=== PATIENT | female | born 1965 | race Caucasian/White ===

== ENCOUNTER → 2016-10-04 | Outpatient (CLI) | payer OTHER ==
[~2016-10-04] MED LIST: AMOXICILLIN500 MG PO; ANAPROX DS550 MG PO; BACTRIM DS 8001 TAB PO; DAYPRO600 M1 PO; DEXILANT60 MG PO; DITROPAN XL5 MG PO; EES400 MG PO; KEFLEX500 MG PO; LISINOPRIL40 MG PO; LOMOTIL 0.025 M1 TA1 PO; MOTRIN600 MG PO; MOTRIN800 MG PO; NAPROXEN250 MG PO; NORVASC10 MG PO; PERCOCET 650 MG1 TA1 PO; PYRIDIUM200 MG PO; ROBAXIN750 MG PO; TOVIAZ8 MG PO; VICODIN 5/500 505 MG PO; VOLTAREN50 M1 PO; ZOFRAN ODT4 MG SL
[2016-10-04 14:13] LABS: BILIRUBIN NEGATIVE (NEGATIVE); BLOOD NEGATIVE (NEGATIVE); CLARITY CLEAR (CLEAR); COLOR YELLOW (YELLOW); GLUCOSE NEGATIVE (NEGATIVE); KETONE NEGATIVE (NEGATIVE); LEUKO ESTERASE NEGATIVE (NEGATIVE); NITRITE NEGATIVE (NEGATIVE); PROTEIN NEGATIVE (NEGATIVE); SPECIFIC GRAVITY 1.015 (1.005-1.030); UROBILINOGEN 0.2 E.U./dl (0.2-1.0)
[2016-10-04 14:29] LABS: MUCOUS TRACE
== END | disposition home or self-care (01) ==
LOC: LAB 13:56
PROVIDERS: Family Medicine
DX: R60.0 Localized edema (principal)

== ENCOUNTER → 2017-08-08 | Outpatient (CLI) | payer OTHER ==
[2017-08-08 10:27] LABS: ALBUMIN 3.4 gm/dl (3.1-4.5); ALKALINE PHOSPHATASE 107 U/L (45-117); BILIRUBIN, DIRECT 0.2 mg/dL (0.0-0.2); BUN 13 mg/dl (7-24); CHLORIDE 102 mmol/L (98-107); SGOT/AST 22 IU/L (3-35); SGPT/ALT 31 U/L (12-78); SODIUM 139 mmol/L (136-145)
[2017-08-08 10:33] LABS: THYROID STIM HORMONE (HS) 0.754 uIU/ml (0.358-4.75)
== END | disposition home or self-care (01) ==
LOC: LAB 09:24
PROVIDERS: Psychiatry & Neurology Neurology
DX: R20.0 Anesthesia of skin (principal)

== ENCOUNTER 2018-04-08 02:16 | Emergency (ER) | payer OTHER ==
[~2018-04-08] VITALS: Ht 167.6 cm; Wt 106.6 kg
[2018-04-08 02:17] VITALS: BP 176/81
[2018-04-08] MEDS ORDERED: AMOXICILLIN500 M2 PO (02:31)
[2018-04-08] MEDS ORDERED: DIFLUCAN150 MG PO (02:31)
== END 2018-04-08 03:12 | disposition home or self-care (01) ==
LOC: ED 02:16
DX: H60.91 Unspecified otitis externa, right ear (principal); B37.9 Candidiasis, unspecified; Z88.6 Allergy status to analgesic agent; Z79.899 Other long term (current) drug therapy; Z79.2 Long term (current) use of antibiotics; Z90.710 Acquired absence of both cervix and uterus; Z90.49 Acquired absence of other specified parts of digestive tract

== ENCOUNTER → 2023-10-09 | Outpatient (CLI) | payer OTHER ==
[~2023-10-09] MED LIST changes: +AMLODIPINE BESYL5 MG PO; +AMOXICILLIN500 M2 PO; +CARVEDILOL25 MG PO; +DIFLUCAN150 MG PO; +DULOXETINE HCL60 MG PO; +FUROSEMIDE40 MG PO; +KLOR-CON M2020 ME1 PO; +OMEPRAZOLE40 MG PO; +OXYCODONE HYDRO15 MG PO; +VITAMIN D350 MCG PO; +ZYVOX600 MG PO; +Zestril,Prinivi40 MG PO
== END | disposition home or self-care (01) ==
LOC: WOUNDCARE 01:31
PROVIDERS: ATTEND Nurse Practitioner Family
DX: T87.89 Other complications of amputation stump (principal); S88.119A Complete traumatic amputation at level between knee and ankle, unspecified lower leg, initial encounter; L97.822 Non-pressure chronic ulcer of other part of left lower leg with fat layer exposed; L03.90 Cellulitis, unspecified; I10 Essential (primary) hypertension; I73.9 Peripheral vascular disease, unspecified; M86.9 Osteomyelitis, unspecified; F17.210 Nicotine dependence, cigarettes, uncomplicated; Z90.49 Acquired absence of other specified parts of digestive tract; Z79.899 Other long term (current) drug therapy; W19.XXXA Unspecified fall, initial encounter; Y83.5 Amputation of limb(s) as the cause of abnormal reaction of the patient, or of later complication, without mention of misadventure at the time of the procedure; Y92.89 Other specified places as the place of occurrence of the external cause; Y93.89 Activity, other specified; Y99.8 Other external cause status

== ENCOUNTER → 2023-10-16 | Outpatient (CLI) | payer OTHER | END | disposition home or self-care (01) | LOC: WOUNDCARE 00:41 | PROVIDERS: ATTEND Nurse Practitioner Family | DX: T87.89 Other complications of amputation stump (principal); S88.119D Complete traumatic amputation at level between knee and ankle, unspecified lower leg, subsequent encounter; L97.822 Non-pressure chronic ulcer of other part of left lower leg with fat layer exposed; L03.90 Cellulitis, unspecified; I10 Essential (primary) hypertension; I73.9 Peripheral vascular disease, unspecified; M86.9 Osteomyelitis, unspecified; F17.210 Nicotine dependence, cigarettes, uncomplicated; Z90.49 Acquired absence of other specified parts of digestive tract; Z79.899 Other long term (current) drug therapy; W19.XXXD Unspecified fall, subsequent encounter; Y83.5 Amputation of limb(s) as the cause of abnormal reaction of the patient, or of later complication, without mention of misadventure at the time of the procedure ==

== ENCOUNTER 2024-02-08 21:43 | Emergency (ER) | payer OTHER ==
[~2024-02-08] VITALS: Ht 154.9 cm; Wt 86.2 kg
[2024-02-08 22:35] VITALS: BP 147/88
[2024-02-08] MEDS ORDERED: SILVER SULFADIAZINE 25 GM TUBE T ONE (22:40)
[2024-02-08] MEDS ORDERED: SILVADENE20 GM T (22:40)
== END 2024-02-08 22:42 | disposition home or self-care (01) ==
LOC: ED 21:43
DX: T24.112A Burn of first degree of left thigh, initial encounter (principal); T31.0 Burns involving less than 10% of body surface; K21.9 Gastro-esophageal reflux disease without esophagitis; I10 Essential (primary) hypertension; F32.A Depression, unspecified; J45.909 Unspecified asthma, uncomplicated; F41.9 Anxiety disorder, unspecified; F17.200 Nicotine dependence, unspecified, uncomplicated; Z88.5 Allergy status to narcotic agent; Z90.49 Acquired absence of other specified parts of digestive tract; Z90.89 Acquired absence of other organs; Z98.890 Other specified postprocedural states; Z98.51 Tubal ligation status; Z90.710 Acquired absence of both cervix and uterus; X19.XXXA Contact with other heat and hot substances, initial encounter; Y93.89 Activity, other specified; Y92.89 Other specified places as the place of occurrence of the external cause; Y99.8 Other external cause status

== ENCOUNTER 2024-03-06 14:33 | Emergency (ER) | payer OTHER ==
[~2024-03-06] VITALS: Ht 165.1 cm; Wt 89.8 kg
[~2024-03-06 14:33] MED LIST changes: +CEPHALEXIN500 M1 PO; +SILVADENE20 GM T; +VIBRAMYCIN100 MG PO
[2024-03-06] MEDS ORDERED: diphenhydrAMINE hydrochloride 50 MG/ML VIAL IV ONE (14:50)
[2024-03-06] MEDS ORDERED: SODIUM CHLORIDE 0.9% 1,000 ML IV ONE (14:50)
[2024-03-06] MEDS ORDERED: Metoclopramide Hydrochloride 10 MG/2 ML AMP IV ONE (14:50)
[2024-03-06 15:24] LABS: BASO % 0.2 % (0.0-1.0); EOS % 0.5 % (1.0-4.0); HEMATOCRIT 41.9 % (37.0-47.0); LYMPH % 23.5 % (27.0-41.0); MEAN CELL VOLUME 76.3 fl (81.0-99.0); MEAN CORPUSCULAR HGB 24.2 pg (27.0-31.0); MEAN CORPUSCULAR HGB CONC 31.7 g/dl (33.0-37.0); MEAN PLATELET VOLUME 10.4 fl (9.6-12.3); MONO # 0.6 10*3/uL (0.1-1.0); MONO % 6.4 % (3.0-9.0); NEUT % 68.9 % (47.0-73.0); PLATELET COUNT AUTOMATED 492 10*3/uL (130-400); RED BLOOD COUNT 5.49 10*6/uL (4.10-5.10); RED CELL DISTRI WIDTH 16.3 % (0-14.5); WHITE BLOOD COUNT 8.7 10*3/uL (4.8-10.8)
[2024-03-06 15:39] VITALS: BP 209/81
[2024-03-06 15:42] LABS: BUN 17 mg/dl (9-23); CHLORIDE 101 mmol/L (98-107); LIPASE 31 U/L (12-53); POTASSIUM 3.1 mmol/L (3.4-5.1)
[2024-03-06] MEDS ORDERED: POTASSIUM CHLORIDE 20 MEQ TAB PO ONE (15:55)
[2024-03-06] MEDS ORDERED: FAMOTIDINE 50 ML IV ONE (16:05)
[2024-03-06] MEDS ORDERED: Ondansetron Hydrochloride 4 MG/2 ML VIAL IV ONE (16:05)
[2024-03-06] MEDS ORDERED: SEPTDS PO (16:14)
[2024-03-06] MEDS ORDERED: REGLAN10 M1 PO (16:14)
== END 2024-03-06 16:55 | disposition home or self-care (01) ==
LOC: ED 14:33
PROVIDERS: Emergency Medicine
DX: R11.2 Nausea with vomiting, unspecified (principal); Z20.822 Contact with and (suspected) exposure to COVID-19; E87.6 Hypokalemia; L03.116 Cellulitis of left lower limb; R19.7 Diarrhea, unspecified; I10 Essential (primary) hypertension; K21.9 Gastro-esophageal reflux disease without esophagitis; J45.909 Unspecified asthma, uncomplicated; F41.9 Anxiety disorder, unspecified; F17.200 Nicotine dependence, unspecified, uncomplicated; Z88.5 Allergy status to narcotic agent; Z90.49 Acquired absence of other specified parts of digestive tract; Z90.89 Acquired absence of other organs; Z98.890 Other specified postprocedural states; Z98.51 Tubal ligation status; Z90.710 Acquired absence of both cervix and uterus

== ENCOUNTER → 2024-07-14 | Outpatient (CLI) | payer OTHER ==
[~2024-07-14] MED LIST changes: +HYDROCHLOROTH12.5 M3 PO; +LORAZEPAM1 MG PO; +POTASSIUM CHLO20 ME4 PO; +REGLAN10 M1 PO; +SEPTDS PO; +SILVADENE,SSD C50 GM T; +VIBRA-TAB100 MG PO
== END | disposition home or self-care (01) ==
LOC: WOUNDCARE 01:09
PROVIDERS: ATTEND Nurse Practitioner Family
DX: T87.89 Other complications of amputation stump (principal); Y83.5 Amputation of limb(s) as the cause of abnormal reaction of the patient, or of later complication, without mention of misadventure at the time of the procedure; L02.416 Cutaneous abscess of left lower limb; S88.112D Complete traumatic amputation at level between knee and ankle, left lower leg, subsequent encounter; L03.90 Cellulitis, unspecified; I10 Essential (primary) hypertension; I73.9 Peripheral vascular disease, unspecified; M86.9 Osteomyelitis, unspecified; F17.200 Nicotine dependence, unspecified, uncomplicated; Z89.512 Acquired absence of left leg below knee; Z90.49 Acquired absence of other specified parts of digestive tract; Z98.890 Other specified postprocedural states; Z79.899 Other long term (current) drug therapy; X58.XXXD Exposure to other specified factors, subsequent encounter

== ENCOUNTER → 2024-07-21 | Outpatient (CLI) | payer OTHER ==
[~2024-07-21] MED LIST changes: +IOHEXOL 300 MG/ML 100 ML VIAL IV ONE; +IOHEXOL 300 MG/ML 100 ML VIAL ONE
== END | disposition home or self-care (01) ==
LOC: CT 14:19
PROVIDERS: ATTEND Nurse Practitioner Family
DX: L02.416 Cutaneous abscess of left lower limb (principal)

== ENCOUNTER → 2024-08-04 | Outpatient (CLI) | payer OTHER ==
[~2024-08-04] MED LIST changes: -IOHEXOL 300 MG/ML 100 ML VIAL IV ONE; -IOHEXOL 300 MG/ML 100 ML VIAL ONE
== END | disposition home or self-care (01) ==
LOC: WOUNDCARE 00:47
PROVIDERS: ATTEND Nurse Practitioner Family
DX: T87.89 Other complications of amputation stump (principal); L02.416 Cutaneous abscess of left lower limb; S88.119D Complete traumatic amputation at level between knee and ankle, unspecified lower leg, subsequent encounter; L03.90 Cellulitis, unspecified; I73.9 Peripheral vascular disease, unspecified; I10 Essential (primary) hypertension; M86.9 Osteomyelitis, unspecified; F17.200 Nicotine dependence, unspecified, uncomplicated; Z89.512 Acquired absence of left leg below knee; Z90.49 Acquired absence of other specified parts of digestive tract; Z98.890 Other specified postprocedural states; Z79.899 Other long term (current) drug therapy; X58.XXXD Exposure to other specified factors, subsequent encounter; Y83.5 Amputation of limb(s) as the cause of abnormal reaction of the patient, or of later complication, without mention of misadventure at the time of the procedure

== ENCOUNTER → 2024-08-27 | Outpatient (CLI) | payer OTHER | END | disposition home or self-care (01) | LOC: WOUNDCARE 00:51 | PROVIDERS: ATTEND Nurse Practitioner Family | DX: T87.89 Other complications of amputation stump (principal); L02.416 Cutaneous abscess of left lower limb; S88.119D Complete traumatic amputation at level between knee and ankle, unspecified lower leg, subsequent encounter; L03.90 Cellulitis, unspecified; I73.9 Peripheral vascular disease, unspecified; I10 Essential (primary) hypertension; F17.200 Nicotine dependence, unspecified, uncomplicated; Z90.49 Acquired absence of other specified parts of digestive tract; Z89.512 Acquired absence of left leg below knee; Z98.890 Other specified postprocedural states; Z79.899 Other long term (current) drug therapy; X58.XXXD Exposure to other specified factors, subsequent encounter; Y83.5 Amputation of limb(s) as the cause of abnormal reaction of the patient, or of later complication, without mention of misadventure at the time of the procedure ==

== ENCOUNTER → 2024-09-12 | Outpatient (CLI) | payer OTHER | END | disposition home or self-care (01) | LOC: WOUNDCARE 04:07 | PROVIDERS: ATTEND Nurse Practitioner Family | DX: L02.416 Cutaneous abscess of left lower limb (principal); T87.89 Other complications of amputation stump; S88.119D Complete traumatic amputation at level between knee and ankle, unspecified lower leg, subsequent encounter; R60.9 Edema, unspecified; L03.90 Cellulitis, unspecified; I10 Essential (primary) hypertension; I73.9 Peripheral vascular disease, unspecified; F17.200 Nicotine dependence, unspecified, uncomplicated; Z89.512 Acquired absence of left leg below knee; Z90.49 Acquired absence of other specified parts of digestive tract; Z98.890 Other specified postprocedural states; Z79.899 Other long term (current) drug therapy; X58.XXXD Exposure to other specified factors, subsequent encounter; Y83.5 Amputation of limb(s) as the cause of abnormal reaction of the patient, or of later complication, without mention of misadventure at the time of the procedure ==

== ENCOUNTER → 2024-09-22 | Outpatient (CLI) | payer OTHER | END | disposition home or self-care (01) | LOC: WOUNDCARE 12:15 | PROVIDERS: ATTEND Nurse Practitioner Family | DX: T87.89 Other complications of amputation stump (principal); L02.416 Cutaneous abscess of left lower limb; S88.119D Complete traumatic amputation at level between knee and ankle, unspecified lower leg, subsequent encounter; L03.90 Cellulitis, unspecified; I73.9 Peripheral vascular disease, unspecified; I10 Essential (primary) hypertension; F17.200 Nicotine dependence, unspecified, uncomplicated; Z90.49 Acquired absence of other specified parts of digestive tract; Z98.890 Other specified postprocedural states; Z87.891 Personal history of nicotine dependence; Z79.891 Long term (current) use of opiate analgesic; Y83.5 Amputation of limb(s) as the cause of abnormal reaction of the patient, or of later complication, without mention of misadventure at the time of the procedure ==

== ENCOUNTER 2025-02-01 17:26 | Emergency (ER) | payer OTHER ==
[2025-02-01 17:37] VITALS: BP 179/95
[2025-02-01] MEDS ORDERED: Ondansetron Hydrochloride 4 MG/2 ML VIAL IV ONE (17:50)
[2025-02-01 18:03] LABS: BASO # 0.0 10*3/uL (0.0-0.1); BASO % 0.4 % (0.0-1.0); EOS # 0.2 10*3/uL (0.0-0.4); EOS % 1.7 % (1.0-4.0); MEAN CELL VOLUME 86.3 fl (81.0-99.0); MEAN CORPUSCULAR HGB 27.1 pg (27.0-31.0); MEAN PLATELET VOLUME 10.8 fl (9.6-12.3); MONO # 0.7 10*3/uL (0.1-1.0); MONO % 6.9 % (3.0-9.0); NEUT # 5.6 10*3/uL (2.3-7.9); NEUT % 59.4 % (47.0-73.0); NUCLEATED RED BLOOD CELL 0.0 % (0.0-0.0); NUCLEATED RED BLOOD CELL 0.0 10*3/uL (0.0-0.0); PLATELET COUNT AUTOMATED 340 10*3/uL (130-400); RED CELL DISTRI WIDTH 15.8 % (0-14.5)
[2025-02-01 18:25] LABS: BUN 12 mg/dl (9-23)
== END 2025-02-01 20:08 | disposition home or self-care (01) ==
LOC: ED 17:26
PROVIDERS: Emergency Medicine
DX: H43.391 Other vitreous opacities, right eye (principal); R42 Dizziness and giddiness; F17.200 Nicotine dependence, unspecified, uncomplicated; Z98.890 Other specified postprocedural states; Z90.49 Acquired absence of other specified parts of digestive tract; Z90.89 Acquired absence of other organs; Z89.519 Acquired absence of unspecified leg below knee; Z90.710 Acquired absence of both cervix and uterus; Z88.5 Allergy status to narcotic agent; Z88.1 Allergy status to other antibiotic agents

== ENCOUNTER → 2025-02-16 | Outpatient (CLI) | payer OTHER | END | disposition home or self-care (01) | LOC: RAD 00:42 → WOUNDCARE 00:42 | PROVIDERS: ATTEND Nurse Practitioner Family | DX: L02.416 Cutaneous abscess of left lower limb (principal); L03.116 Cellulitis of left lower limb; I73.9 Peripheral vascular disease, unspecified; I10 Essential (primary) hypertension; M86.9 Osteomyelitis, unspecified; F17.200 Nicotine dependence, unspecified, uncomplicated; F12.90 Cannabis use, unspecified, uncomplicated; Z90.49 Acquired absence of other specified parts of digestive tract; Z89.512 Acquired absence of left leg below knee ==

== ENCOUNTER → 2025-02-26 | Day surgery (SDC) | payer OTHER ==
[~2025-02-26] VITALS: Ht 153.6 cm; Wt 97.5 kg
[~2025-02-26] MED LIST changes: +ACETAMINOPHEN 100 ML IV ONE; +Dexamethasone Sodium Phospha 4 MG/ML VIAL IV ONE; +HYDROmorphONE Hydrochloride 0.5 MG/0.5 ML SYRINGE IV PRN; +HYDROmorphONE Hydrochloride 0.5 MG/0.5 ML SYRINGE ONE; +Lactated Ringer's Solution 1,000 ML IV ONE; +Lidocaine Hydrochloride 30 ML VIAL ONE; +Lidocaine Hydrochloride 5 ML VIAL IV ONE; +Ondansetron Hydrochloride 4 MG/2 ML VIAL IV ONE; +PROPOFOL 200 MG/20 ML VIAL IV ONE; +SEVOFLURANE 250 ML BOT INH ONE; +ceFAZolin sodium 2GM/20ML IV ONE; +ceFAZolin sodium/sodium chlor 20 ML IV ONE
[2025-02-26 08:50] VITALS: BP 148/85
[2025-02-26 09:21] LABS: BUN 17 mg/dl (9-23)
[2025-02-26 10:37] VITALS: BP 142/73
[2025-02-26 10:52] VITALS: BP 159/74
[2025-02-26 11:07] VITALS: BP 153/78
[2025-02-26 11:22] VITALS: BP 145/75
[2025-02-26 11:27] VITALS: BP 149/76
[2025-02-27 10:07] LABS: ACID FAST SPEC PROCESSING Tissue Grinding (.)
== END | disposition home or self-care (01) ==
LOC: SDC 02-25 13:15
PROVIDERS: ATTEND Orthopaedic Surgery
DX: T87.89 Other complications of amputation stump (principal); T87.44 Infection of amputation stump, left lower extremity; I10 Essential (primary) hypertension; I25.10 Atherosclerotic heart disease of native coronary artery without angina pectoris; F41.9 Anxiety disorder, unspecified; K21.9 Gastro-esophageal reflux disease without esophagitis; K44.9 Diaphragmatic hernia without obstruction or gangrene; J45.909 Unspecified asthma, uncomplicated; F17.200 Nicotine dependence, unspecified, uncomplicated; Z98.890 Other specified postprocedural states; Z79.899 Other long term (current) drug therapy; Z88.8 Allergy status to other drugs, medicaments and biological substances; Z90.710 Acquired absence of both cervix and uterus; Z90.49 Acquired absence of other specified parts of digestive tract; Z98.891 History of uterine scar from previous surgery; Y69 Unspecified misadventure during surgical and medical care